=== PATIENT | female | born 1990 | race Caucasian/White ===

== ENCOUNTER → 2019-06-22 07:17 | Outpatient (CLI) | payer SELFPAY ==
--- NOTE | 2019-06-22 14:00 | PFTCOMP_ITS ---
COMPLETE PULMONARY FUNCTION TEST INTERPRETATION Brief HPI: Patient is a 29 year old female, currently under the care of myself, who presents to [facility] for complete pulmonary function tests secondary to diagnosis of dyspnea. Respiratory therapist reports good effort and reproducible results. Interpretation: Forced expiration spirometry shows no large airways obstructive ventilatory defect with an FEV1 of 95% predicted. There is no significant bronchodilator response by strict ATS criteria. Spirograms are of good quality and plateau normally. The respiratory flow volume loop shows a normal pattern. Lung volumes by body plethysmography show a normal total lung capacity at 5.84 L, 98% predicted. All other lung volumes are within normal limits. Diffusion capacity by carbon monoxide is normal at 94% predicted. The airway resistance is slightly elevated. No previous pulmonary function tests were available for review. Impression: These pulmonary function tests are within normal limits.
== END ==
PROVIDERS: Family Provider Family Medicine; PCP Family Medicine; Referring Provider Internal Medicine Critical Care Medicine; Visit Provider Internal Medicine Critical Care Medicine
DX: R06.09 Other forms of dyspnea (principal)
CPT/HCPCS: 94060; 94726; 94729

== ENCOUNTER → 2020-05-02 11:19 | Outpatient (CLI) | payer OTHER, SELFPAY ==
[2019-07-06 11:15] VITALS: BMI 21.4
--- NOTE | 2020-05-02 11:29 | RAD_ITS ---
STUDY: X-RAY - ACUTE ABDOMINAL SERIES REASON FOR EXAM: Female, 30 years old. Anterior pain, more to the left of abdomen since last night, describes as a stabbing pain TECHNIQUE: Single view of the chest. Supine, and erect view(s) of the abdomen were obtained. 4 total views obtained COMPARISON: None. FINDINGS: The lungs are clear and expanded. Normal size heart. Normal mediastinum and allison. Normal visualized pulmonary arteries. Normal visualized aortic arch and descending thoracic aorta. There is a non-specific bowel gas pattern. The soft tissue structures of the abdomen and pelvis are unremarkable. Normal visualized osseous structures. RAD/Acute Abdomen Inc Chest IMPRESSION: Normal x-ray examination of the chest, abdomen, and pelvis. Electronically Signed: Yash Santizo MD at 13:00 EDT , Service support ,
[2020-05-02 15:37] LABS: Absolute Lymphocyte Count 1.21 X10^3/uL (0.83-4.51); Absolute Neutrophil Count 2.5 X10^3/uL (2.0-7.7); Basophil# 0.03 X10^3/uL; Basophil% 0.7 % (0-1); Eosinophil# 0.13 X10^3/uL; Hematocrit 42.6 % (37-47); Hemoglobin 13.3 g/dL (12.0-15.0); Lymphocyte # 1.21 X10^3/ul (4.0); Lymphocyte % 28.2 % (19-41); Mean Corp Hgb Conc 31.2 g/dL (32-36); Mean Corpuscular Hgb 29.9 pg (27.0-32.0); Mean Corpuscular Volume 95.7 fL (81-99); Mean Platelet Vol. 11.8 fl (6.2-12.0); Monocyte# 0.42 X10^3/uL; Monocyte% 9.8 % (0-10); NRBC Flagged by Analyzer 0 % (0-5); Neutrophil # 2.49 X10^3/uL (2.7-7.7); Neutrophil % 58.1 % (47-70); Platelet Count 235 K/mm3 (150-450); RBC Distribution Width CV 12.7 % (11.6-14.6); RBC Distribution Width SD 45.1 fl (35.1-43.9); Red Blood Count 4.45 M/mm3 (4.2-5.4); White Blood Count 4.3 K/mm3 (4.4-11.0)
[2020-05-02 16:08] LABS: ALB/GLOB Ratio 1.2 RATIO (0.9-2.4); AST(SGOT) 14 U/L (15-37); Alanine Aminotransfer ALT/SGPT 19 U/L (13-56); Albumin, Serum 4.4 g/dL (3.2-5.0); Alkaline Phosphatase 51 U/L (45-117); Anion Gap 7 (5-15); BUN 11 mg/dL (7-18); BUN/Creat Ratio 14.7 RATIO (10-20); CRP < 2.90 mg/L (0.0-3.0); Calcium,Total 9.1 mg/dL (8.5-10.1); Chloride 102 mmol/L (98-107); Creatinine, Serum 0.75 mg/dL (0.55-1.02); EST Glomerular Filtration Rate 98 mL/min (>60); Est Glom Filt Rate - Afr Amer 118 mL/min (>60); Globulin 3.8 g/dL (2.2-4.2); Glucose 77 mg/dL (74-106); Potassium 3.9 mmol/L (3.5-5.1); Protein, Total 8.2 g/dL (6.4-8.2); Sodium Level 137 mmol/L (136-145)
== END ==
PROVIDERS: PCP Family Medicine; Referring Provider Family Medicine; Visit Provider Family Medicine
DX: R10.9 Unspecified abdominal pain (principal)
CPT/HCPCS: 36415; 74022; 80053; 85025; 86140

== ENCOUNTER 2020-06-19 20:02 | Emergency (ER) | payer OTHER, SELFPAY ==
[2019-07-06 11:15] VITALS: BMI 21.4
[2020-06-19 20:03] VITALS: BP 136/79; PULSE 118; RESP 16; TEMP 36.4; O2SAT 98; BMI 21.4
--- NOTE | 2020-06-19 20:21 | ED.RN ---
PT TOOK 2 TABLETS OF FENISTIL DRAGEE
--- NOTE | 2020-06-19 20:42 | ED.VIS.GEN ---
History of Present Illness Chief Complaint: Allergic Reaction Informant: Patient Narrative: Patient has a peanut allergy. She inadvertently ate a small amount of peanut just prior to arrival, she has a diffuse rash. She denies any throat tightening change in voice shortness of breath nausea or vomiting or abdominal pain. Past Medical History - Allergies and Home Meds Allergies/Adverse Reactions: Allergies nut - unspecified Allergy (Severe, Verified 05/23/20 14:30) Anaphylaxis Primary Care Physician: Matt Cunningham MD [Primary Care Provider] - Past Medical History: - - Multiple allergies to foods Smoking Status: Never smoker Review of Systems General: Denies: Fever ENT: Denies: Sore throat Cardiovascular: Denies: Chest pain Respiratory: Denies: Dyspnea, Cough Gastrointestinal: Denies: Abdominal pain, Nausea, Vomiting Genitourinary: Reports: - - Denies Skin: Reports: Rash Neurological: Denies: Weakness Hematologic: Denies: Easy bruising Allergy: Denies: Swelling of the mouth, Swelling of the tongue Physical Exam Vital Signs/Narrative: Vital Signs Temp Pulse Resp BP Pulse Ox 06/19/20 20:03 97.6 F L 118 H 16 136/79 H 98 General: Well nourished, Well developed, - - She does not appear in significant distress ENT: Moist mucous membranes, - - No oral involvement normal voice Neck: Supple Cardiovascular: Regular rate, Regular rhythm Respiratory: No distress, CTA bilaterally Abdomen: Soft, Nontender Back: Nontender, Normal Inspection Extremities: Nontender, No edema Skin: - - Diffuse urticaria over the neck chest abdomen and upper leg region including some of the back. Neurological: Normal Strength, Normal Sensation Diagnostic/Tx/Re-eval - Medical Decision Making Patient is given Solu-Medrol, Benadryl, Pepcid IV. She will be discharged with symptomatic treatment, she does not meet criteria for epinephrine. ED Disposition - Plan for ED Patient: Disposition: Home or Assisted Living Diagnosis: Allergic reaction Instructions: ED General Allergic Reactions Prescriptions: Prednisone [Deltasone] 40 mg PO DAILY #6 tab Prescription Printed Hydroxyzine Pamoate [Vistaril] 50 mg PO 4X/DAY PRN PRN #15 cap PRN Reason: Itching Prescription Printed Referrals: Matt Cunningham MD [Primary Care Provider] - 3-5 Days
[2020-06-19] MEDS: DiphenhydrAMINE 25 MG Capsule PO (21:44)
[2020-06-19] MEDS: predniSONE 20 MG Tablet 40 MG PO (21:44)
== END 2020-06-19 21:51 | disposition home or self-care (01) ==
PROVIDERS: Emergency Provider Emergency Medicine; PCP Family Medicine
DX: T78.40XA Allergy, unspecified, initial encounter (principal); Z91.010 Allergy to peanuts
CPT/HCPCS: 99283; J3490